=== PATIENT | male | born 1950 | race Caucasian/White ===

== ENCOUNTER 2017-08-02 14:06 | Observation (INO) | payer MEDICARE, BC ==
[~2017-08-02] VITALS: Ht 165.1 cm; Wt 87.0 kg
[2017-08-02] MEDS ORDERED: LACTATED RINGERS 1,000 ML IV SCH (15:08)
[2017-08-02 15:20] VITALS: BP 138/95
[2017-08-02] MEDS ORDERED: PLEASE ENTER HEIGHT AND WEIGHT MC SCH (15:30)
[2017-08-02] MEDS ORDERED: XARELTO (15:55)
[2017-08-02] MEDS ORDERED: FUROSEMIDE (15:55)
[2017-08-02] MEDS ORDERED: METO-99 PO (15:55)
[2017-08-02] MEDS ORDERED: DIGO250T PO (15:55)
[2017-08-02 17:18] LABS: CULTURE INDICATED? YES; MICROSCOPIC AUTO
[2017-08-02] MEDS ORDERED: FENTANYL PF 250 MCG/5ML ONE (17:53)
[2017-08-02] MEDS ORDERED: MIDAZOLAM 1 MG/ML, 2ML ONE (17:53)
[2017-08-02] MEDS ORDERED: PROPOFOL 10 MG/ML, 20ML ONE (17:55)
[2017-08-02] MEDS ORDERED: ROCURONIUM 10 MG/ML,10ML ONE (17:56)
[2017-08-02] MEDS ORDERED: GLYCOPYRROLATE 0.4 MG/2 ML, 2ML ONE (17:57)
[2017-08-02] MEDS ORDERED: NEOSTIGMINE 1 MG/ML, 10ML ONE (17:57)
[2017-08-02] MEDS ORDERED: CEFAZOLIN 1,000 MG ONE ×2 (17:58)
[2017-08-02] MEDS ORDERED: SODIUM CHLORIDE 0.9% PF 10ML ONE (17:58)
[2017-08-02] MEDS ORDERED: PHENYLEPHRINE 10 MG/ML ONE (20:37)
[2017-08-02] MEDS ORDERED: morphine SULFATE 10 MG/ML, 1ML IV PRN (21:00)
[2017-08-02] MEDS ORDERED: PROMETHAZINE 25 MG/ML, 1ML IV PRN (21:00)
[2017-08-02] MEDS ORDERED: MEPERIDINE/PF 25MG/0.5ML IVPush PRN (21:00)
[2017-08-02] MEDS ORDERED: ACETAMINOPHEN 325 MG TABLET PO PRN (21:00)
[2017-08-02] MEDS ORDERED: HYDROmorphone 1 MG/ML, 1ML IV PRN (21:00)
[2017-08-02] MEDS ORDERED: hydrALAzine 20 MG/ML, 1ML IV PRN (21:00)
[2017-08-02] MEDS ORDERED: PROMETHAZINE 12.5 MG SUPP PR PRN (21:00)
[2017-08-02] MEDS ORDERED: ONDANSETRON 2MG/ML, 2ML IVPush PRN (21:00)
[2017-08-02] MEDS ORDERED: FENTANYL PF 100 MCG/2ML IV PRN (21:00)
[2017-08-02] MEDS ORDERED: METOPROLOL 1 MG/ML, 5ML ONE (21:00)
[2017-08-02] MEDS: LABETALOL 5MG/ML, 20ML IV PRN ×2 (21:45→22:10)
[2017-08-02] MEDS ORDERED: ACETAMINOPHEN 650 MG/20.3 ML UDC ONE (21:54)
[2017-08-02] MEDS ORDERED: OXYcodone 5 MG/5 ML ORAL.SOL UDC ONE (21:54)
[2017-08-02] MEDS: OXYcodone 5 MG/5 ML ORAL.SOL UDC PO PRN ×2 (21:55→22:45)
[2017-08-02] MEDS: morphine SULFATE 10 MG/ML, 1ML IV PRN (23:28)
[2017-08-02] MEDS ORDERED: RIVAROXABAN MC SCH (23:30)
[2017-08-02] MEDS ORDERED: ONDANSETRON 2MG/ML, 2ML IV PRN (23:30)
[2017-08-02] MEDS ORDERED: FUROSEMIDE MC SCH (23:30)
[2017-08-02] MEDS: LACTATED RINGERS 1,000 ML IV SCH (23:30)
[2017-08-03] MEDS: morphine SULFATE 10 MG/ML, 1ML IV PRN
[2017-08-03 03:15] VITALS: BP 95/57
[2017-08-03] MEDS: OXYcodone/APAP 5/325MG TABLET PO PRN ×3 (05:01→13:46)
[2017-08-03] MEDS: LACTATED RINGERS 1,000 ML IV SCH (07:30)
[2017-08-03 08:15] VITALS: BP 131/77
[2017-08-03] MEDS ORDERED: DIGOXIN 0.125 MG TABLET ONE (08:53)
[2017-08-03] MEDS ORDERED: DIGOXIN 0.25 MG TABLET PO SCH (09:00)
[2017-08-03] MEDS ORDERED: METOPROLOL TARTRATE 100 MG TABLET PO SCH (09:00)
[2017-08-03] MEDS ORDERED: FUROSEMIDE 20 MG TABLET PO SCH (09:30)
[2017-08-03] MEDS ORDERED: TAMSULOSIN 0.4 MG CAP.ER.24H ONE (10:14)
[2017-08-03] MEDS ORDERED: KETOROLAC 30 MG/1 ML ONE (10:14)
[2017-08-03] MEDS ORDERED: KETOROLAC 30 MG/1 ML IVPush PRN (10:30)
[2017-08-03] MEDS ORDERED: TAMSULOSIN 0.4 MG CAP.ER.24H PO SCH (10:30)
[2017-08-03 13:43] VITALS: BP 106/65
[2017-08-04] MEDS ORDERED: DIGOXIN 0.125 MG TABLET PO SCH (09:00)
== END 2017-08-03 14:20 | disposition home or self-care (01) ==
LOC: OUT 14:06 → 4NOR 22:30 → OUT 22:42 → 4NOR 22:50 → DCLOUNGE 08-03 14:00
PROVIDERS: ADMIT Urology; ATTEND Urology
DX: N20.2 Calculus of kidney with calculus of ureter (principal); I48.91 Unspecified atrial fibrillation; I10 Essential (primary) hypertension; R31.0 Gross hematuria
CPT/HCPCS: 52332; 74018; 76000; 81001; 87086; 93005; 96374; 96375; C1758; C1769; C2617; G0378; J0690; J1885; J2250; J2270; J2370; J2405; J2704; J2710; J3010; J7120